=== PATIENT | male | born 1955 | race Caucasian/White ===

== ENCOUNTER 2023-05-10 14:43 | Emergency (ER) | payer MEDICARE, MEDICAID ==
[~2023-05-10] VITALS: Ht 172.7 cm; Wt 75.0 kg
[2023-05-10 14:52] VITALS: BP 133/79; PULSE 95; RESP 18; TEMP 97.9; O2SAT 96
[2023-05-10] MEDS ORDERED: FLUO60OI TP (15:38)
[2023-05-10] MEDS ORDERED: [UNRECOGNIZED DRUG - CODE] TP (15:56)
== END 2023-05-10 16:09 | disposition home or self-care (01) ==
LOC: ER 14:43
DX: K13.79 Other lesions of oral mucosa (principal); F31.9 Bipolar disorder, unspecified; Z88.0 Allergy status to penicillin
CPT/HCPCS: 99281; 99282